=== PATIENT | female | born 1980 | race Caucasian/White ===

== ENCOUNTER 2022-11-19 11:21 | Emergency (ER) | payer BC, SELFPAY ==
[2022-11-19 12:04] VITALS: BP 123/78; PULSE 75; RESP 20; TEMP 36.4; O2SAT 98; BMI 28.3
--- NOTE | 2022-11-19 14:04 | ED_ITS ---
HPI - General Adult General Time Seen by Provider: 14:04 Date Seen: 11/19/22 Chief complaint: Skin/Abscess/Foreign Body Stated complaint: Swollen left hand/rash spreading to shoulder Time Seen by Provider: 11/19/22 13:48 Source: patient and RN notes reviewed Mode of arrival: ambulatory Limitations: no limitations History of Present Illness HPI narrative: Patient is a 42-year-old female coming in with concern of a rash on her left arm that is spreading upper arm. On questioning, she actually has it on both hands and forearms but the left 1 is worse. The left hand has become and swollen. She wears wrist splints bilaterally at night for carpal tunnel after having carpal tunnel develope with her pregnancies. She is at home with her children but states she is constantly washing her hands. Her children have had eczema. She has not noted any fevers. No joint pains. She does note that she had the flu last week but these rash symptoms started before that. She notes she will rip off her wrist splints at night the middle the night. It is itchy but yet painful. She is started to seep some drainage around the fingers on the left hand. She is wondering if it could be infected. Related Data Previous Rx's Medication Instructions Recorded triamcinolone acetonide 0.1 % 1 applic topical TID #80 grams 11/19/22 topical cream Allergies Allergy/AdvReac Type Severity Reaction Status Date / Time No Known Drug Allergies Allergy Verified 11/19/22 12:07 Review of Systems Status of ROS: Reports: 6 or more systems reviewed and unremarkable except as noted in History and below PFSH PFSH Social History Smoking Status: Former smoker Do you use any of these nicotine containing products: None Second hand tobacco smoke exposure: No How often do you have a drink containing alcohol: monthly or less How many standard drinks containing alcohol do you have on a typical day: 1 or 2 AUDIT-C Alcohol total score: 1 Non-prescribed substance use: denies use Exam Const: Vital Signs, click to edit/add: Vital Signs - 24 hr 11/19/22 12:04 11/19/22 14:35 11/19/22 15:56 Temperature 97.5 F L 98.0 F Pulse Rate [Pulse Oximeter] 75 82 65 Respiratory Rate 20 16 20 Blood Pressure [Ri ght Upper Arm] 123/78 157/98 H 123/90 H Pulse Oximetry 98 96 99 Oxygen Delivery Me thod Room Air Room Air Room Air Documenting provider has reviewed patient's vital signs: yes Common normals: no apparent distress, average body habitus, oriented x3, no limitations, healthy appearing, alert and well nourished Other: Patient has obvious eczematous rash left hand and forearm worse than right. It is slightly erythematous and a little bit rougher sandpapery. She does have some mild petechial change on some of the sides of the fingers and the left hand. It is more on the dorsum of the hand, not the palm. HENMT: Common normals: normocephalic, head/scalp atraumatic and hearing grossly normal bilaterally Head and scalp: normocephalic and atraumatic Eye: Common normals: PERRL, EOMs intact bilaterally, conjunctivae normal and no scleral icterus Conjunctiva: conjunctiva(e) normal Pupil: PERRL Neck & C-Spine: Common normals: full ROM, no lymphadenopathy, supple, no meningeal signs, no JVD and thyroid normal Thyroid: thyroid normal Resp: Common normals: normal respiratory effort, no retractions, no use of accessory muscles and clear to auscultation bilaterally Auscultation: clear to auscultation bilaterally Cardio: Common normals: no JVD, regular rate, regular rhythm, S1 normal heart sound, S2 normal heart sound, no gallops, no clicks, no murmurs and no rub Rate: regular rate Rhythm: regular rhythm Heart sounds: S1 normal and S2 normal Neuro: Common normals: oriented x3 Sensorium/orientation: alert Meningeal signs: no meningeal signs Course Course Hospital Course: Will attempt to get her rings off, check basic labs. She is in agreement to have her rings cut off, she understands the might be in multiple pieces. Reevaluation(s) Reevaluation #1: Reviewed with patient that her white count actually is mildly suppressed, the virus she had last week certainly is still evident in her white count. She states she is still feeling a bit under the weather. Her rings are off. She has been icing her left hand, no traumatic changes from removal of the rings. Reviewed that her comprehensive metabolic panel is normal. Platelets are certainly normal. I do feel that this is eczematous skin reaction. Reviewed that I do not feel that there is any evidence of any infection at this time but she does need to watch for it. Time: 16:18 Vital Signs Vital signs: Initial Vital Signs Temperature 97.5 F L 11/19/22 12:04 Temperature Source Temporal Artery Scan 11/19/22 12:04 Pulse Rate 75 11/19/22 12:04 Respiratory Rate 20 11/19/22 12:04 Blood Pressure 123/78 11/19/22 12:04 Blood Pressure Mean 93 11/19/22 12:04 Blood Pressure Position Sitting 11/19/22 12:04 Pulse Oximetry 98 11/19/22 12:04 Oxygen Delivery Method 11/19/22 12:04 Vital Signs Temperature 97.5 F L 11/19/22 12:04 Pulse Rate 75 11/19/22 12:04 Respiratory Rate 20 11/19/22 12:04 Blood Pressure 123/78 11/19/22 12:04 Pulse Oximetry 98 11/19/22 12:04 Oxygen Delivery Method 11/19/22 12:04 Temperature 98.0 F 11/19/22 14:35 Pulse Rate 65 11/19/22 15:56 Respiratory Rate 11/19/22 15:56 Blood Pressure 123/90 H 11/19/22 15:56 Pulse Oximetry 99 11/19/22 15:56 Oxygen Delivery Method 11/19/22 15:56 Medical Decision Making Lab Data Lab results reviewed: Yes I reviewed the patient's lab results Labs: Lab Results 11/19/22 11/19/22 Range/Units 14:45 14:45 WBC 3.00 L (4.50-11.00) K/uL RBC 4.60 (4.00-5.20) m/uL Hgb 14.6 (12.0-16.0) gm/dL Hct 42.9 (33.0-51.0) % MCV 93 (80-100) fL MCH 32 (26-34) pg MCHC 34 (32-36) gm/dL RDW Coeff of Monty 12.1 (11.5-15.5) % Plt Count 235 (140-440) K/uL Neut % (Auto) 29.1 L (42.0-72.0) % Lymph % (Auto) 57.0 H (20-44) % [place] % (Auto) 10.3 (0.0-11.0) % Eos % (Auto) 3.0 (0.0-7.0) % Baso % (Auto) 0.3 (0.0-3.0) % Neut # (Auto) 0.90 L (1.7-7.0) K/uL Lymph # (Auto) 1.70 (0.90-2.90) K/uL [place] # (Auto) 0.30 (0.00-0.90) K/UL Eos # (Auto) 0.10 (0.00-0.50) K/uL Baso # (Auto) 0.00 (0.00-0.30) K/uL Sodium 139 (135-149) mmol/L Potassium 4.8 (3.6-5.1) mmol/L Chloride 105 (96-114) mmol/L Carbon Dioxide 22 (20-32) mmol/L BUN 13 (5-24) mg/dL Creatinine 0.7 (0.5-1.5) mg/dL Estimated Creat Clear 79.00 Estimated GFR 111 ml/min Glucose 87 (60-115) mg/dL Calcium 9.2 (8.4-10.6) mg/dL Total Bilirubin 0.5 (0.1-1.5) mg/dL AST 33 (12-35) U/L ALT 31 (4-35) U/L Alkaline Phosphatase 57 (40-150) U/L Total Protein 7.9 (6.0-8.3) g/dL Albumin 4.7 (3.3-5.0) g/dL Critical Care Time Critical Care Time Critical Care Time: No Discharge Plan Discharge Clinical Impression: Eczema of both hands Patient Disposition: Home, Self-Care Condition: Stable Instructions: Dermatitis (ED) Additional Instructions: 1. To help with the itching, recommend taking daily Claritin or Zyrtec. 2. To actually treat the irritated skin which I believe is eczema, will have you put on steroid cream 2 to 3 times a day. At night time, recommend using cotton gloves and put the cotton gloves over the application of this steroid cream. Will do an initial 3 days of oral steroids to help with your symptoms and resolve the process quicker. 3. You need to minimize handwashing, chemical and soap use. Non perfumed lotions such as Aquaphor or Eucerin can be soothing and do recommend using this twice a day baseline, can be used more if soothing. 4. Do need to follow-up with your primary care provider in clinic within the next week for recheck. 5. I do wonder if the wrist splints might be contributing to your symptoms. Talk to your primary care provider about this further. Prescriptions: New triamcinolone acetonide 0.1 % cream 1 applic topical TID Qty: 80 0RF Follow Up/Referrals: Nicole Solares DO [Primary Care Provider] - Stand Alone Forms: MyHealth Info Instructions
[2022-11-19 14:35] VITALS: BP 157/98; PULSE 82; RESP 16; TEMP 36.7; O2SAT 96
[2022-11-19 14:54] LABS: Basophils Percent Auto 0.3 % (0.0-3.0); Hematocrit 42.9 % (33.0-51.0); Hemoglobin* 14.6 gm/dL (12.0-16.0); Immature Granulocytes Pct Auto 0.3 %; Mean Corpuscular HGB Conc 34 gm/dL (32-36); Mean Corpuscular Hemoglobin 32 pg (26-34); Mean Corpuscular Volume 93 fL (80-100); Monocytes Percent Auto 10.3 % (0.0-11.0); Neutrophils Percent Auto 29.1 % (42.0-72.0); Platelet Count* 235 K/uL (140-440); RDW Coefficient of Variation % 12.1 % (11.5-15.5)
[2022-11-19 15:07] LABS: Slide Review Reflex No
[2022-11-19 15:10] LABS: Albumin* 4.7 g/dL (3.3-5.0); Chloride* 105 mmol/L (96-114); Potassium* 4.8 mmol/L (3.6-5.1); Sodium* 139 mmol/L (135-149)
[2022-11-19 15:13] LABS: Alkaline Phosphatase* 57 U/L (40-150); Aspartate Amino Transferase* 33 U/L (12-35); Bilirubin Total* 0.5 mg/dL (0.1-1.5); Blood Urea Nitrogen* 13 mg/dL (5-24); Carbon Dioxide* 22 mmol/L (20-32); Creatinine* 0.7 mg/dL (0.5-1.5); Estimated Glomerular Filt Rate 111 ml/min; Glucose* 87 mg/dL (60-115); Total Protein* 7.9 g/dL (6.0-8.3)
[2022-11-19 15:14] LABS: Alanine Aminotransferase* 31 U/L (4-35); Calcium* 9.2 mg/dL (8.4-10.6)
[2022-11-19 15:56] VITALS: BP 123/90; PULSE 65; RESP 20; O2SAT 99
== END 2022-11-19 16:29 | disposition home or self-care (01) ==
PROVIDERS: Emergency Provider Family Medicine; PCP Family Medicine
DX: L30.9 Dermatitis, unspecified (principal)
CPT/HCPCS: 36415; 80053; 85025; 99283